=== PATIENT | female | born 1965 | race Caucasian/White ===

== ENCOUNTER 2017-02-10 06:36 | Day surgery (SDC) | payer BC, OTHER ==
[~2017-02-10 06:36] MED LIST: RINGERS SOLUTION,LACTATED 1,000 ML IV PRN
--- OUTSIDE RECORDS SUMMARY | 2017-02-10 06:39 | XMS REPORT | Continuity of Care Document ---
:1965 Author Organization [facility] Address [place] [address] Care Team Providers Name Role Phone Yuliana Luong Primary Care Provider [phone] Source Comments This disclosure is being made pursuant to the [employer] program and maynot contain all information available regarding this patient.[facility] Active Allergies and Adverse Reactions No Known Allergies Current Medications Be aware that medications may not be up to date as of this document. Alwaysverify current medications with the patient. Prescription Sig. Disp. Refills Start Date End Date Status metoprolol tartrate Take 50 mg by mouth. Active (LOPRESSOR) 50 MG tablet Whitney-3 Fatty Acids Take by mouth. Active (FISH OIL) 1000 MG CPDR PARoxetine (PAXIL) Take 20 mg by mouth. Active 20 MG tablet rosuvastatin Take 5 mg by mouth Active (CRESTOR) 5 MG daily. tablet STELARA 45 MG/0.5ML INJECT THE CONTENTS 1 Syringe 2 09/20/2016 Active SOSY OF ONE SYRINGE (45 MG) SUBCUTANEOUSLY EVERY TWELVEWEEKS DIRECTED. REFRIGERATE. DO NOT FREEZE OR SHAKE. PROTECT FROM Active Problems Problem Noted Date Asteatosis cutis 02/09/2015 Psoriasis 11/09/2014 Keloid scar 11/09/2014 Malaise and fatigue 02/17/2014 Overview: Overview: LATANYA MURCIA Myalgia and myositis 02/17/2014 Overview: Overview: LATANYA MURCIA Hyperlipidemia 11/09/2013 Overview: Overview: Essential hypertension 11/09/2013 Overview: Overview: Obesity 11/09/2013 Overview: Overview: ALEYDA LICONA DO Nonspecific elevation of level of transaminase or lactic acid 11/09/2013 dehydrogenase (LDH) Overview: Overview: ALEYDA LICONA DO Encounter for long-term (current) use of medications 09/20/2013 Overview: Overview: RIC MONTIEL MD Vitamin D deficiency 06/16/2013 Overview: Overview: RIC MONTIEL MD Seborrheic dermatitis 11/11/2012 Overview: Overview: RIC MONTIEL MD Resolved Problems Problem Noted Date Resolved Date Rash and nonspecific skin eruption 02/17/2014 02/09/2015 Overview: Overview: LATANYA MURCIA Disease of sebaceous glands 11/11/2012 02/09/2015 Overview: Overview: RIC MONTIEL MD Changes in skin texture 11/11/2012 02/09/2015 Overview: Overview: RIC MONTIEL MD Most Recent Encounters Date Type Specialty Providers Description 01/16/2017 Data Import Social History Tobacco Use Types Packs/Day Years Used Date Never Smoker Smokeless Tobacco: Never Used Alcohol Use Drinks/Week oz/Week Comments No Alcoholic Drinks/day: CURRENT ALCOHOL USER Last Filed Vital Signs Vital Sign Reading Time Taken Blood Pressure 114/68 11/29/2014 9:14 AM [employer] Pulse 62 11/29/2014 9:14 AM [employer] Temperature 35.6 C (96.1 F) 11/29/2014 9:14 AM [employer] Respiratory Rate 20 02/08/2015 3:35 PM CDT Height 1.702 m (5' 7") 11/08/2014 3:40 PM [employer] Weight 113.399 kg (250 lb) 11/29/2014 9:14 AM [employer] HOU[employer] Body Mass Index 39.15 11/29/2014 9:14 AM [employer] HOU[employer] Oxygen Saturation - - Plan of Care Health Maintenance Due Date Last Done Comments Tetanus/Pertussis (1 - Tdap) 1985 Pap Smear 1987 Colonoscopy 2016 Well Adult Visit 2016 Influenza Immunization (#1) 2016 Mammogram 08/31/2017 08/31/2015, 08/17/2014 Results from Last 3 Months Not on file
[2017-02-10] MEDS ORDERED: RINGERS SOLUTION,LACTATED 1,000 ML IV ONE (07:25)
[2017-02-10] MEDS ORDERED: RINGERS SOLUTION,LACTATED 1,000 ML IV PRN (08:18)
[2017-02-10 09:20] VITALS: BP 122/68
--- NOTE | 2017-02-10 16:21 | OR ---
Operative Report - Dictated Report Narrative: OPERATIVE REPORT DATE OF OPERATION: 02/10/2017 PREOPERATIVE DIAGNOSIS: No prior dedicated colon studies POSTOPERATIVE DIAGNOSIS: Normal colonoscopy OPERATION: Colonoscopy SURGEON: Lisseth Castillo MD ANESTHESIA: CAMILLA John CRNA INDICATIONS FOR PROCEDURE: The patient is a 51-year-old female referred for initial colon screening by Dr Luong. The patient has had no previous dedicated colon studies. There is no family history of colon cancer. The patient is currently asymptomatic FINDINGS: Normal colonoscopy NARRATIVE OF PROCEDURE: The patient was identified in the holding area, and prior to the administration of anesthetic, a multidisciplinary timeout was observed. With the patient in the left lateral position and after the administration of intravenous sedation, the perineum was inspected. There was no evidence of pilonidal disease or skin breakdown. The external appearance of the anus was normal. Sphincter tone was good. The flexible fiberoptic colonoscope was inserted into the rectum which was insufflated with air. The rectal mucosa and submucosal vascular pattern appeared normal, the prep was seen to be complete. The scope was advanced through the sigmoid colon, up the descending colon, and around the splenic flexure where the triangular haustral architecture of the transverse colon was seen. The scope was advanced across the transverse colon, around the hepatic flexure to the cecum, where the confluence of tenia and the ileocecal valve were identified. The mucosa at this level appeared normal. The scope was then slowly withdrawn in a circular fashion so that all aspects of colonic mucosa were inspected. The colon was normal in course and caliber. The haustral architecture appeared well preserved throughout with no evidence of external compression. The mucosa and submucosal vascular pattern appeared normal, specifically there was no gross evidence to suggest colitis or inflammatory bowel disease and no AV malformations were seen. No diverticulosis was demonstrated. No polyps were encountered. The scope was gradually withdrawn to the level of the rectum. As much insufflated air as possible was removed. The scope was withdrawn from the patient and the procedure terminated. The patient tolerated the anesthetic and procedure well without complication and was transferred back to the ambulatory surgery area awake and in stable condition. The patient remained stable throughout a period of postoperative observation. She denied abdominal discomfort, was able to tolerate by mouth intake, and was up without assistance. I shared the operative findings with the patient and she was given copies of the photographs which appear in the medical record. She was discharged home with instructions not to engage in hazardous activity today , but may resume normal activity tomorrow, and advance diet as tolerated. She is to continue those medications as listed in the history and physical exam. RECOMMENDATION: Colon surveillance in 10 years depending upon findings and symptoms Reviewed and electronically signed
== END 2017-02-10 06:37 | disposition home or self-care (01) ==
LOC: AMB 06:36
PROVIDERS: ATTEND Surgery
PROC: 0DJD8ZZ Inspection of Lower Intestinal Tract, Via Natural or Artificial Opening Endoscopic (ICD-10-PCS; principal; 2017-02-10 08:00)
DX: Z12.11 Encounter for screening for malignant neoplasm of colon (principal); I10 Essential (primary) hypertension; E78.5 Hyperlipidemia, unspecified; K21.9 Gastro-esophageal reflux disease without esophagitis; D64.9 Anemia, unspecified; E55.9 Vitamin D deficiency, unspecified; Z68.41 Body mass index [BMI] 40.0-44.9, adult